=== PATIENT | male | born 1980 | race African-American/Black ===

== ENCOUNTER 2019-12-25 09:50 | Emergency (ER) | payer SELFPAY ==
[~2019-12-25] VITALS: Ht 170.2 cm; Wt 110.9 kg
[2019-12-25] MEDS ORDERED: PSEU-191 PO (10:11)
[2019-12-25] MEDS ORDERED: IBUP-2071 PO (10:14)
[2019-12-25] MEDS ORDERED: OXYM30MI NS (10:14)
[2019-12-25] MEDS ORDERED: PRAZ2 PO (10:14)
[2019-12-25] MEDS ORDERED: SERT50TA12 PO (10:14)
[2019-12-25 11:52] VITALS: BP 115/75
== END 2019-12-25 12:35 | disposition home or self-care (01) ==
LOC: EMS 10:00
DX: J40 Bronchitis, not specified as acute or chronic (principal); J06.9 Acute upper respiratory infection, unspecified; I10 Essential (primary) hypertension; F12.90 Cannabis use, unspecified, uncomplicated; F32.9 Major depressive disorder, single episode, unspecified; Z79.899 Other long term (current) drug therapy